=== PATIENT | female | born 1990 | race Caucasian/White ===

== ENCOUNTER 2019-04-19 15:04 | Emergency (ER) | payer BC ==
[2019-04-19 16:09] LABS: Absolute Lymphocytes (CBC) 1.6 K/uL (0.7-4.9); Absolute Monocytes 0.4 K/uL (0.1-1.3); Absolute Neutrophil 5.3 K/uL (1.8-8.0); Basophils % 0.3 % (0-1.3); Eosinophils % 1.1 % (0-4.4); Hematocrit 37.4 % (36.0-45.0); Lymphocytes % 21.8 % (15.3-44.8); MPV 10.3 fL (7.6-11.3); Monocytes % 4.8 % (3.3-12.3); RBC Red Blood Cell Count 4.14 M/uL (3.86-4.86)
[2019-04-19 16:16] LABS: BUN Blood Urea Nitrogen 9 mg/dL (7-18); Bicarbonate 28 mmol/L (21-32); Creatine Phosphokinase 413 U/L (26-192); Glucose Level 83 mg/dL (74-106); Potassium 3.6 mmol/L (3.5-5.1); Sodium Level 139 mmol/L (136-145); Troponin (Emerg Dept Use Only) < 0.02 ng/mL (0.0-0.045)
[2019-04-19] MEDS ORDERED: NA CHLORIDE 0.9% 1,000 ML ONE (16:41)
--- NOTE | 2019-04-19 16:42 | RAD REPORT ---
EXAM DESCRIPTION: RAD - Chest Pa And Lat (2 Views) - 04/19/2019 4:34 pm CLINICAL HISTORY: R/O PNEUMONIA Chest pain. COMPARISON: No comparisons FINDINGS: The lungs are clear. The heart is normal in size. No displaced fractures. IMPRESSION: No acute or concerning finding suspected.
--- NOTE | 2019-04-19 17:09 | EDPHYS ---
Physician Documentation [facility] Name: Skyla Conroy Age: 28 yrs Sex: Female : 1990 Arrival Date: 04/19/2019 Time: 15:08 Bed 2 Private MD: ED Physician Kvng Kinsey HPI: 04/19 15:50 This 28 yrs old Female presents to ER via Wheelchair with complaints of Chest kb Pain. 15:50 The patient or guardian reports chest pain that is located primarily in the anterior kb chest wall, right. The pain does not radiate. Associated signs and symptoms: The patient has no apparent associated signs or symptoms. The chest pain is described as sharp. Duration: The patient or guardian reports a single episode, that is still ongoing. Modifying factors: the symptoms are aggravated by deep breath, movement. Severity of pain: At its worst the pain was moderate in the emergency department the pain is unchanged. The patient has not experienced similar symptoms in the past. The patient has not recently seen a physician. Pt reports sharp right, lower chest pain that started yesterday. Pain is sharp with deep breath, sneezing and movement. Denies palpitations, shortness of breath, cough, fever or any other symptoms.. Historical: - Allergies: 15:34 Codeine; sv - PMHx: 15:54 None; sv - PSHx: 15:34 None; sv - Immunization history:: Adult Immunizations up to date. - Social history:: Smoking status: Patient/guardian denies using tobacco. - Ebola Screening: : No symptoms or risks identified at this time. ROS: 15:49 Constitutional: Negative for fever, chills, and weight loss, Neck: Negative for injury, kb pain, and swelling, Respiratory: Negative for shortness of breath, cough, wheezing, and pleuritic chest pain, Abdomen/GI: Negative for abdominal pain, nausea, vomiting, diarrhea, and constipation, Back: Negative for injury and pain, MS/Extremity: Negative for injury and deformity, Skin: Negative for injury, rash, and discoloration, Neuro: Negative for headache, weakness, numbness, tingling, and seizure. 15:49 Cardiovascular: Positive for chest pain, with movement, of the right breast, Negative for edema, orthopnea, palpitations, paroxysmal nocturnal dyspnea. Exam: 15:49 Constitutional: This is a well developed, well nourished patient who is awake, alert, kb and in no acute distress. Head/Face: Normocephalic, atraumatic. Neck: Trachea midline, no thyromegaly or masses palpated, and no cervical lymphadenopathy. Supple, full range of motion without nuchal rigidity, or vertebral point tenderness. No Meningismus. Cardiovascular: Regular rate and rhythm with a normal S1 and S2. No gallops, murmurs, or rubs. Normal PMI, no JVD. No pulse deficits. Respiratory: Lungs have equal breath sounds bilaterally, clear to auscultation and percussion. No rales, rhonchi or wheezes noted. No increased work of breathing, no retractions or nasal flaring. Abdomen/GI: Soft, non-tender, with normal bowel sounds. No distension or tympany. No guarding or rebound. No evidence of tenderness throughout. Skin: Warm, dry with normal turgor. Normal color with no rashes, no lesions, and no evidence of cellulitis. MS/ Extremity: Pulses equal, no cyanosis. Neurovascular intact. Full, normal range of motion. Neuro: Awake and alert, GCS 15, oriented to person, place, time, and situation. Cranial nerves II-XII grossly intact. Motor strength 5/5 in all extremities. Sensory grossly intact. Cerebellar exam normal. Normal gait. 15:49 Chest/axilla: Inspection: normal, Palpation: tenderness, that is mild, of the right breast, that partially reproduces the patient's complaints, Axilla: are normal. 15:53 ECG was reviewed by the Attending Physician. kb Vital Signs: 15:35 BP 122 / 79; Pulse 70; Resp 18; Temp 97.9(O); Pulse Ox 98% ; Weight 74.84 kg; Height 5 sv ft. 5 in. (165.10 cm); Pain 5/10; 16:35 BP 123 / 66; Pulse 65; Resp 16; Pulse Ox 100% ; sv 17:18 BP 126 / 73; Pulse 66; Resp 16; Pulse Ox 99% ; sv 15:35 Body Mass Index 27.46 (74.84 kg, 165.10 cm) sv MDM: 15:24 Patient medically screened. kb 15:49 Data reviewed: vital signs, nurses notes. Data interpreted: Pulse oximetry: on room air kb is 100 %. Interpretation: normal. 17:08 Counseling: I had a detailed discussion with the patient and/or guardian regarding: the kb historical points, exam findings, and any diagnostic results supporting the discharge/admit diagnosis, lab results, radiology results, the need for outpatient follow up, a family practitioner, to return to the emergency department if symptoms worsen or persist or if there are any questions or concerns that arise at home. 04/19 15:30 Order name: CBC with Diff; Complete Time: 16:20 kb 04/19 15:30 Order name: Basic Metabolic Panel; Complete Time: 16:20 kb 04/19 15:30 Order name: Troponin (emerg Dept Use Only); Complete Time: 16:20 kb 04/19 15:30 Order name: CPK; Complete Time: 16:20 kb 04/19 15:30 Order name: EKG; Complete Time: 15:43 kb 04/19 16:25 Order name: Chest Pa And Lat (2 Views); Complete Time: 16:43 EDMS 04/19 15:30 Order name: IV Start; Complete Time: 15:51 kb 04/19 15:30 Order name: EKG - Nurse/Tech; Complete Time: 15:51 kb EC:53 Rate is 78 beats/min. Rhythm is regular, Normal Sinus Rhythm. QRS [place] is Normal. MD kb interval is normal at 162 msec. QRS interval is normal at 80 msec. QT interval is normal at 392 msec. Clinical impression: Normal ECG. Interpreted by me. Reviewed by me. Administered Medications: 16:30 Drug: NS 0.9% 1000 ml Route: IV; Rate: 1000 ml; Site: right antecubital; sv 17:21 Follow up: Response: No adverse reaction; IV Status: Completed infusion; IV Intake: sv 1000ml Disposition: 04/19/19 17:08 Discharged to Home. Impression: Chest pain on breathing. - Condition is Stable. - Discharge Instructions: Costochondritis, [id number], Nonspecific Chest Pain, [id number]. - Medication Reconciliation Form, Thank You Letter, Antibiotic Education, Prescription Opioid Use form. - Follow up: Private Physician; When: 2 - 3 days; Reason: Recheck today's complaints, Continuance of care, Re-evaluation by your physician. Follow up: Emergency Department; When: As needed; Reason: Worsening of condition. Addendum: 04/23/2019 20:54 Co-signature as Attending Physician, Kvng Kinsey MD. g s Signatures: Dispatcher [employer] [facility] Yola De Los Santos, JOSAFAT-Maria Alejandra MAURICE-Felicita Sin, RN RN Kvng Forrest MD MD gs Corrections: (The following items were deleted from the chart) 04/19 15:55 15:38 Chest Pa And Lat (2 Views) ordered. [facility] EDPR 15:55 15:43 Chest Pa And Lat (2 Views)+RAD.RAD.BRZ ordered. [facility] EDPR 17:21 17:08 04/19/2019 17:08 Discharged to Home. Impression: Chest pain on breathing. sv Condition is Stable. Forms are Medication Reconciliation Form, Thank You Letter, Antibiotic Education, Prescription Opioid Use. Follow up: Private Physician; When: 2 - 3 days; Reason: Recheck today's complaints, Continuance of care, Re-evaluation by your physician. Follow up: Emergency Department; When: As needed; Reason: Worsening of condition. kb
--- NOTE | 2019-04-19 17:09 | ER ---
Nurse's Notes [facility] Name: Skyla Conroy Age: 28 yrs Sex: Female : 1990 Arrival Date: 04/19/2019 Time: 15:08 Bed 2 Private MD: Diagnosis: Chest pain on breathing Presentation: 04/19 15:25 Presenting complaint: Patient states: right sided chest pain, worse with movement or sv deep breathing. Transition of care: patient was not received from another setting of care. Risk Assessment: Do you want to hurt yourself or someone else? Patient reports no desire to harm self or others. Initial Sepsis Screen: Does the patient meet any 2 criteria? No. Patient's initial sepsis screen is negative. Does the patient have a suspected source of infection? No. Patient's initial sepsis screen is negative. Care prior to arrival: None. 15:25 Method Of Arrival: Wheelchair sv 15:25 Acuity: TORIBIO 3 sv 17:20 Onset of symptoms was April 18, 2018. sv Triage Assessment: 15:25 General: Appears in no apparent distress. uncomfortable, slender, well developed, sv Behavior is calm, cooperative, appropriate for age. Pain: Complains of pain in right breast Pain currently is 5 out of 10 on a pain scale. Quality of pain is described as sharp, Is intermittent, episodic, Aggravated by deep breathing and movement. Neuro: Level of Consciousness is awake, alert, obeys commands, Oriented to person, place, time, situation, Moves all extremities. Full function Gait is steady. Respiratory: Respiratory effort is even, unlabored, Respiratory pattern is regular, symmetrical. Derm: Skin is pink, warm \T\ dry. Historical: - Allergies: 15:34 Codeine; sv - PMHx: 15:54 None; sv - PSHx: 15:34 None; sv - Immunization history:: Adult Immunizations up to date. - Social history:: Smoking status: Patient/guardian denies using tobacco. - Ebola Screening: : No symptoms or risks identified at this time. Screenin:06 Abuse screen: Denies threats or abuse. Denies injuries from another. Nutritional hb screening: No deficits noted. Tuberculosis screening: No symptoms or risk factors identified. Fall Risk None identified. Assessment: 15:38 General: Appears in no apparent distress. Behavior is calm, cooperative. Pain: hb Complains of pain in chest Pain does not radiate. Pain began 2-3 days ago. Neuro: Level of Consciousness is awake, alert, obeys commands, Oriented to person, place, time, situation. Cardiovascular: Heart tones S1 S2 present Capillary refill < 3 seconds Patient's skin is warm and dry. Respiratory: Airway is patent Respiratory effort is even, unlabored, Respiratory pattern is regular, symmetrical, Breath sounds are clear bilaterally. GI: No signs and/or symptoms were reported involving the gastrointestinal system. : No signs and/or symptoms were reported regarding the genitourinary system. EENT: No signs and/or symptoms were reported regarding the EENT system. Derm: Skin is intact, is healthy with good turgor, Skin is pink, warm \T\ dry. Musculoskeletal: No signs and/or symptoms reported regarding the musculoskeletal system. 16:19 Reassessment: Patient appears in no apparent distress at this time. No changes from sv previously documented assessment. Patient and/or family updated on plan of care and expected duration. Pain level reassessed. Patient is alert, oriented x 3, equal unlabored respirations, skin warm/dry/pink. 16:34 Reassessment: Patient appears in no apparent distress at this time. No changes from sv previously documented assessment. Patient and/or family updated on plan of care and expected duration. Pain level reassessed. Patient is alert, oriented x 3, equal unlabored respirations, skin warm/dry/pink. 17:18 Reassessment: Patient appears in no apparent distress at this time. No changes from sv previously documented assessment. Patient and/or family updated on plan of care and expected duration. Pain level reassessed. Patient is alert, oriented x 3, equal unlabored respirations, skin warm/dry/pink. Vital Signs: 15:35 BP 122 / 79; Pulse 70; Resp 18; Temp 97.9(O); Pulse Ox 98% ; Weight 74.84 kg; Height 5 sv ft. 5 in. (165.10 cm); Pain 5/10; 16:35 BP 123 / 66; Pulse 65; Resp 16; Pulse Ox 100% ; sv 17:18 BP 126 / 73; Pulse 66; Resp 16; Pulse Ox 99% ; sv 15:35 Body Mass Index 27.46 (74.84 kg, 165.10 cm) sv ED Course: 15:08 Patient arrived in ED. tw3 15:24 Yola D eLos Santos FNP-C is [facility]. kb 15:24 Kvng Kinsey MD is Attending Physician. kb 15:25 Arm band placed on Patient placed in an exam room, on a stretcher. sv 15:30 EKG done, by ED staff, reviewed by Yola DE LA TORRE. sv 15:32 Felicita Smith RN is Primary Nurse. sv 15:33 Triage completed. sv 15:34 Patient has correct armband on for positive identification. Placed in gown. Bed in low hb position. Call light in reach. Side rails up X 1. clinical nurse occupational medicine on. Pulse ox on. NIBP on. 15:39 Patient maintains SpO2 saturation greater than 95% on room air. hb 15:45 Inserted saline lock: 20 gauge in right antecubital area, using aseptic technique. hb Blood collected. 16:19 Patient moved to radiology via wheelchair. sv 16:31 Chest Pa And Lat (2 Views) Sent. sv 16:34 Chest Pa And Lat (2 Views) In Process Unspecified. EDMS 16:34 Awaiting lab results, Awaiting radiology results. sv 17:18 No provider procedures requiring assistance completed. Patient did not have IV access sv during this emergency room visit. Administered Medications: 16:30 Drug: NS 0.9% 1000 ml Route: IV; Rate: 1000 ml; Site: right antecubital; sv 17:21 Follow up: Response: No adverse reaction; IV Status: Completed infusion; IV Intake: sv 1000ml Intake: 17:21 IV: 1000ml; Total: 1000ml. sv Outcome: 17:08 Discharge ordered by . kb 17:19 Discharged to home ambulatory. sv 17:19 Condition: stable 17:19 Discharge instructions given to patient, Instructed on discharge instructions, follow up and referral plans. Demonstrated understanding of instructions, follow-up care. 17:21 Patient left the ED. sv Signatures: Dispatcher [employer] EDMS Yola De Los Santos FNP-C FNP-Ckb Verde, Stephanie, CHEN RN sv Baylee Crump RN RN hb Wade, Celine tw3 Corrections: (The following items were deleted from the chart) 15:54 15:35 BP 122 / 79; Pulse 70bpm; Resp 18bpm; Pulse Ox 98%; sv sv
[2019-04-19 18:05] VITALS: TEMP 97.9
[2019-04-19 18:08] VITALS: BP 126/73; O2SAT 99
--- NOTE | 2019-04-20 12:53 | EKG ---
Test Date: 2019-04-19 Test Time: 15:27:54 Wood Casket Assembler: MICHAEL MEASUREMENT RESULTS: Intervals: Rate: 78 LA: 162 QRSD: 80 QT: 392 QTc: 446 [place]: P: 54 LA: 162 QRS: 63 T: 61 INTERPRETIVE STATEMENTS: Normal sinus rhythm Normal ECG No previous ECG available for comparison Electronically Signed On 04-20-19 12:50:54 CDT by Wilfredo Isidro
== END 2019-04-19 17:21 | disposition home or self-care (01) ==
LOC: ER 15:04
DX: R07.1 Chest pain on breathing (principal); Z88.5 Allergy status to narcotic agent
CPT/HCPCS: 36415; 71046; 80048; 82550; 84484; 85025; 93005; 96360; 99285; J7030

== ENCOUNTER 2020-01-30 | Emergency (ER) | payer BC ==
--- NOTE | 2020-01-30 09:10 | ER ---
Nurse's Notes [facility] Name: Skyla Conroy Age: 29 yrs Sex: Female : 1990 Arrival Date: 01/30/2020 Time: 08:31 Bed 17 Private MD: Diagnosis: Dental caries Presentation: 08:52 Chief complaint: Patient states: has a cracked tooth on right lower side of mouth, has iw been hurting for past 3 days. Coronavirus screen: The patient has NOT traveled to [place] in the past 14 days. Proceed with normal triage procedures. Ebola Screen: Patient negative for fever greater than or equal to 101.5 degrees Fahrenheit, and additional compatible Ebola Virus Disease symptoms Patient denies exposure to infectious person. Patient denies travel to an Ebola-affected area in the 21 days before illness onset. No symptoms or risks identified at this time. Initial Sepsis Screen: Does the patient meet any 2 criteria? No. Patient's initial sepsis screen is negative. Does the patient have a suspected source of infection? No. Patient's initial sepsis screen is negative. Risk Assessment: Do you want to hurt yourself or someone else? Patient reports no desire to harm self or others. 08:52 Method Of Arrival: Ambulatory iw 08:52 Acuity: TORIBIO 4 iw 09:24 Onset of symptoms was January 30, [address]. iw [address] [place] JUDGE: 09:24 LMP N/A - iw Historical: - Allergies: 08:54 Codeine; iw - Home Meds: 08:54 None [Active]; iw - PMHx: 08:54 None; iw - PSHx: 08:54 None; iw - Immunization history:: Adult Immunizations. - Social history:: Smoking status: Patient denies any tobacco usage or history of. Screenin:55 Abuse screen: Denies threats or abuse. Denies injuries from another. Nutritional iw screening: No deficits noted. Tuberculosis screening: No symptoms or risk factors identified. Fall Risk None identified. Assessment: 08:54 General: Appears in no apparent distress. Behavior is calm, cooperative. Pain: iw Complains of pain in right jaw. Neuro: Level of Consciousness is awake, alert, obeys commands, Oriented to person, place, time, situation. Respiratory: Respiratory effort is even, unlabored. EENT: Reports pain in right jaw. Vital Signs: 08:52 BP 121 / 65; Pulse 77; Resp 16; Temp 97.7; Pulse Ox 100% on R/A; Weight 77.11 kg; iw Height 5 ft. 5 in. (165.10 cm); Pain 10/10; 08:52 Body Mass Index 28.29 (77.11 kg, 165.10 cm) iw ED Course: 08:31 Patient arrived in ED. mr 08:53 Triage completed. iw 08:54 Arm band placed on. iw 08:59 Francisco Persaud, RN is Primary Nurse. em 09:00 Jason Rivera NP is PHCP. pm1 09:00 Abebe Daly MD is Attending Physician. pm1 09:23 No provider procedures requiring assistance completed. Patient did not have IV access iw during this emergency room visit. 09:24 Patient has correct armband on for positive identification. iw Administered Medications: No medications were administered Outcome: 09:09 Discharge ordered by MD. pm1 09:23 Discharged to home ambulatory. iw 09:23 Condition: good 09:23 Discharge instructions given to patient, Instructed on discharge instructions, follow up and referral plans. medication usage, Demonstrated understanding of instructions, follow-up care, medications, Prescriptions given X 2. 09:24 Patient left the ED. iw Signatures: Jonathon Cecilia mr Francisco Persaud RN RN Rosey Rodney RN RN iw Jason Rivera NP DRY DRUG WORKER pm1 Corrections: (The following items were deleted from the chart) 08:54 08:52 Pulse 77bpm; Resp 16bpm; Pulse Ox 100% RA; Temp 97.7F; 77.11 kg; Height 5 ft. 5 iw in.; BMI: 28.2; Pain 10/10; iw
--- NOTE | 2020-01-30 09:10 | EDPHYS ---
Physician Documentation [facility] Name: Skyla Conroy Age: 29 yrs Sex: Female : 1990 Arrival Date: 01/30/2020 Time: 08:31 Bed 17 Private MD: ED Physician Abebe Daly HPI: 09:09 This 29 yrs old Female presents to ER via Ambulatory with complaints of pm1 Toothache. 09:09 The patient presents with pain. The problem is located in the lower right third molar. pm1 09:09 Onset: The symptoms/episode began/occurred 3 day(s) ago. Duration: The symptoms are pm1 continuous. Modifying factors: The symptoms are alleviated by nothing. Associated signs and symptoms: Pertinent positives: pain, Pertinent negatives: dysphagia, fever, inability to eat, nausea, swelling, vomiting. Severity of symptoms: in the emergency department the symptoms are actually worse. The patient has not recently seen a physician. Patient with cracked right lower molar present for at least 1 year. On and off pain. Has been worse for the past 3 days. 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 - Social history:: Smoking status: Patient denies any tobacco usage or history of. ROS: 09:09 Constitutional: Negative for fever, chills, and weight loss. pm1 09:09 Neck: Negative for injury, pain, and swelling, Cardiovascular: Negative for chest pain, palpitations, and edema, Respiratory: Negative for shortness of breath, cough, wheezing, and pleuritic chest pain, Abdomen/GI: Negative for abdominal pain, nausea, vomiting, diarrhea, and constipation, Neuro: Negative for headache, weakness, numbness, tingling, and seizure. 09:09 ENT: Positive for dental pain, Negative for ear pain, sore throat, difficulty swallowing, difficulty handling secretions, hoarseness. 09:09 All other systems are negative. Exam: 09:09 Constitutional: This is a well developed, well nourished patient who is awake, alert, pm1 and in no acute distress. Head/Face: Normocephalic, atraumatic. 09:09 Neck: Trachea midline, no thyromegaly or masses palpated, and no cervical lymphadenopathy. Supple, full range of motion without nuchal rigidity, or vertebral point tenderness. No Meningismus. Chest/axilla: Normal chest wall appearance and motion. Nontender with no deformity. No lesions are appreciated. Cardiovascular: Regular rate and rhythm with a normal S1 and S2. No gallops, murmurs, or rubs. Normal PMI, no JVD. No pulse deficits. Respiratory: Lungs have equal breath sounds bilaterally, clear to auscultation and percussion. No rales, rhonchi or wheezes noted. No increased work of breathing, no retractions or nasal flaring. Skin: Warm, dry with normal turgor. Normal color with no rashes, no lesions, and no evidence of cellulitis. MS/ Extremity: Pulses equal, no cyanosis. Neurovascular intact. Full, normal range of motion. 09:09 ENT: Dental exam: dental caries, that is moderate, specifically in the lower right third molar (#32). 09:09 Neuro: Exam negative for acute changes, Orientation: is normal, Mentation: is normal, Motor: is normal, moves all fours, Gait: is steady, at a normal pace, without difficulty. Vital Signs: 08:52 BP 121 / 65; Pulse 77; Resp 16; Temp 97.7; Pulse Ox 100% on R/A; Weight 77.11 kg; iw Height 5 ft. 5 in. (165.10 cm); Pain 10/10; 08:52 Body Mass Index 28.29 (77.11 kg, 165.10 cm) iw MDM: 09:01 Patient medically screened. [facility] 09:09 Data reviewed: vital signs. Data interpreted: Pulse oximetry: on room air is 100 %. pm1 Interpretation: normal. Counseling: I had a detailed discussion with the patient and/or guardian regarding: the historical points, exam findings, and any diagnostic results supporting the discharge/admit diagnosis, the need for outpatient follow up, for definitive care, a dentist, to return to the emergency department if symptoms worsen or persist or if there are any questions or concerns that arise at home. 09:13 ED course: No patient data on [place]. pm1 Administered Medications: No medications were administered Disposition: 01/30/20 09:09 Discharged to Home. Impression: Dental caries. - Condition is Stable. - Discharge Instructions: Dental Pain. - Prescriptions for Amoxicillin 500 mg Oral Capsule - take 1 capsule by ORAL route every 8 hours for 10 days; 30 tablet. Tramadol 50 mg Oral Tablet - take 1 tablet by ORAL route every 8 hours As needed as needed; 15 tablet. - Work release form, Medication Reconciliation Form, Thank You Letter, Antibiotic Education, Prescription Opioid Use form. - Follow up: Emergency Department; When: As needed; Reason: Worsening of condition. Follow up: Private Physician; When: 2 - 3 days; Reason: Recheck today's complaints, Continuance of care, Re-evaluation by your physician. - Problem is new. - Symptoms have improved. Addendum: 01/31/2020 17:52 Co-signature as Attending Physician, Abebe Daly MD I agree with the assessment and c loja plan of care. Signatures: Abebe Daly MD MD cha Williams, Irene, RN RN Jason Jo NP [employer]ZARD[employer]ERIALS WASTE TECHNICIAN pm1 Corrections: (The following items were deleted from the chart) 09:24 09:09 01/30/2020 09:09 Discharged to Home. Impression: Dental caries. Condition is iw Stable. Forms are Medication Reconciliation Form, Thank You Letter, Antibiotic Education, Prescription Opioid Use. Follow up: Emergency Department; When: As needed; Reason: Worsening of condition. Follow up: Private Physician; When: 2 - 3 days; Reason: Recheck today's complaints, Continuance of care, Re-evaluation by your physician. Problem is new. Symptoms have improved. pm1
== END 2020-01-30 09:24 | disposition home or self-care (01) ==
CPT/HCPCS: 99282

== ENCOUNTER 2021-05-10 13:21 | Emergency (ER) | payer BC ==
--- NOTE | 2021-05-10 13:48 | ER ---
Nurse's Notes [facility] Name: Skyla Conroy Age: 30 yrs Sex: Female : 1990 Arrival Date: 05/10/2021 Time: 13:22 Bed 18 Private MD: Diagnosis: Cellulitis of right lower limb Presentation: 05/10 13:26 Chief complaint: Patient states: Swelling to medial aspect of right thigh started jl7 yesterday and has spread half way up and down past the knee, unsure if she was bit by something or not. Coronavirus screen: Client denies travel out of the [place] in the last 14 days. At this time, the client does not indicate any symptoms associated with coronavirus-19. Ebola Screen: No symptoms or risks identified at this time. Initial Sepsis Screen: Does the patient meet any 2 criteria? No. Patient's initial sepsis screen is negative. Does the patient have a suspected source of infection? No. Patient's initial sepsis screen is negative. Risk Assessment: Do you want to hurt yourself or someone else? Patient reports no desire to harm self or others. Onset of symptoms was May 09, 2021. Care prior to arrival: None. 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 - Social history:: Smoking status: Patient denies any tobacco usage or history of. Screenin:37 Abuse screen: Denies threats or abuse. Nutritional screening: No deficits noted. jd3 Tuberculosis screening: No symptoms or risk factors identified. Fall Risk Ambulatory Aid- None/Bed Rest/Nurse Assist (0 pts). Gait- Normal/Bed Rest/Wheelchair (0 pts) Mental Status- Oriented to own ability (0 pts). Total Pierre Fall Scale indicates No Risk (0-24 pts). Assessment: 13:35 General: Appears in no apparent distress. comfortable, Behavior is calm, cooperative, jd3 appropriate for age. Pain: Complains of pain in medial aspect of right thigh Quality of pain is described as tender. Neuro: Level of Consciousness is awake, alert, obeys commands, Oriented to person, place, time, situation. Cardiovascular: Denies chest pain, Capillary refill < 3 seconds Patient's skin is warm and dry. Respiratory: Airway is patent Respiratory effort is even, unlabored, Respiratory pattern is regular, symmetrical, Denies cough, shortness of breath. GI: No signs and/or symptoms were reported involving the gastrointestinal system. : No signs and/or symptoms were reported regarding the genitourinary system. EENT: No signs and/or symptoms were reported regarding the EENT system. Derm: Skin is intact, Skin is dry, Skin is normal, Skin temperature is warm Rash noted that is red, on medial aspect of right thigh. Musculoskeletal: Circulation, motion, and sensation intact. Range of motion: intact in all extremities. 13:55 Reassessment: Patient appears in no apparent distress at this time. Patient and/or jd3 family updated on plan of care and expected duration. Pain level reassessed. Patient is alert, oriented x 3, equal unlabored respirations, skin warm/dry/pink. reported understanding of discharge instructions. Vital Signs: 13:26 BP 143 / 63; Pulse 85; Resp 17; Temp 98.3; Pulse Ox 99% ; Weight 81.65 kg; Height 5 ft. jl7 5 in. (165.10 cm); Pain 3/10; 13:26 Body Mass Index 29.95 (81.65 kg, 165.10 cm) jl7 ED Course: 13:22 Patient arrived in ED. ds1 13:28 Triage completed. jl7 13:28 Arm band placed on right wrist. jl7 13:30 Saleem Bhakta, CHEN is Primary Nurse. jd3 13:34 Donn Parrish PA is PHCP. jm 13:34 Igor English MD is Attending Physician. [facility] 13:37 Patient has correct armband on for positive identification. Placed in gown. Bed in low jd3 position. Call light in reach. Side rails up X 1. Adult w/ patient. Pulse ox on. NIBP on. 13:37 No provider procedures requiring assistance completed. Patient did not have IV access jd3 during this emergency room visit. Administered Medications: No medications were administered Outcome: 13:47 Discharge ordered by . tammy 13:55 Discharged to home ambulatory. alexis 13:55 Condition: stable 13:55 Discharge instructions given to patient, Instructed on discharge instructions, follow up and referral plans. medication usage, Demonstrated understanding of instructions, follow-up care, medications, Prescriptions given X 1, 2. 13:55 Patient left the ED. eld3 Signatures: Donn Parrish PA PA jmm Sanford, Demi ds1 Sofie Ledezma RN RN jl7 Saleem Bhakta RN RN jd3
--- NOTE | 2021-05-10 13:48 | EDPHYS ---
Physician Documentation [facility] Name: Skyla Conroy Age: 30 yrs Sex: Female : 1990 Arrival Date: 05/10/2021 Time: 13:22 Bed 18 Private MD: ED Physician Igor English HPI: 05/10 13:44 This 30 yrs old Female presents to ER via Ambulatory with complaints of jmm Insect Bite. 13:44 the patient presents with a swollen area of the right leg. Onset: The symptoms/episode jmm began/occurred gradually, 1 day(s) ago. Possible cause(s): unknown. Associated signs and symptoms: Pertinent positives: erythema, swelling, Pertinent negatives: fever. Modifying factors: the symptoms are alleviated by nothing, the symptoms are aggravated by nothing. This is a 30 year old female with no chronic medical conditions that presents to the ED with complaints of right thigh pain and redness. First noticed 2 evenings ago. Denies fever. Pain increased today while ambulating. . 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 - Social history:: Smoking status: Patient denies any tobacco usage or history of. ROS: 13:44 Constitutional: Negative for fever, chills, and weight loss, Cardiovascular: Negative jmm for chest pain, palpitations, and edema, Respiratory: Negative for shortness of breath, cough, wheezing, and pleuritic chest pain. 13:44 Skin: Positive for erythema. 13:44 All other systems are negative. Exam: 13:44 Constitutional: This is a well developed, well nourished patient who is awake, alert, jmm and in no acute distress. Head/Face: atraumatic. Eyes: EOMI, no conjunctival erythema appreciated ENT: Moist Mucus Membranes Neck: Trachea midline, Supple Chest/axilla: Normal chest wall appearance and motion. Cardiovascular: Regular rate and rhythm. No edema appreciated Respiratory: Normal respirations, no respiratory distress appreciated Abdomen/GI: Non distended, soft Back: Normal ROM 13:44 Skin: erythema noted to the right thigh, induration noted, non fluctuant. . 13:44 Neuro: Orientation: is normal, Mentation: is normal, Memory: is normal. 13:44 Psych: Behavior/mood is pleasant, cooperative. Vital Signs: 13:26 BP 143 / 63; Pulse 85; Resp 17; Temp 98.3; Pulse Ox 99% ; Weight 81.65 kg; Height 5 ft. jl7 5 in. (165.10 cm); Pain 3/10; 13:26 Body Mass Index 29.95 (81.65 kg, 165.10 cm) jl7 MDM: 13:43 [facility] 13:46 Data reviewed: vital signs, nurses notes. Counseling: I had a detailed discussion with tammy the patient and/or guardian regarding: the historical points, exam findings, and any diagnostic results supporting the discharge/admit diagnosis, the need for outpatient follow up, to return to the emergency department if symptoms worsen or persist or if there are any questions or concerns that arise at home. ED course: Patient is alert and non toxic in appearance in the ED. No do not suspect sepsis, abscess. Patient is advised to follow up with pcp and otherwise given strict return precautions. Patient understood and agrees with the plan of care. . Administered Medications: No medications were administered Disposition: 14:06 Co-signature as Attending Physician, Igor English MD. rn Disposition: 05/10/21 13:47 Discharged to Home. Impression: Cellulitis of right lower limb. - Condition is Stable. - Discharge Instructions: Cellulitis, Adult. - Prescriptions for Doxycycline Hyclate 100 mg Oral Tablet - take 1 tablet by ORAL route every 12 hours; 20 tablet. Bactrim DS 800- 160 mg Oral Tablet - take 1 tablet by ORAL route every 12 hours for 10 days; 20 tablet. - Medication Reconciliation Form, Thank You Letter, Antibiotic Education, Prescription Opioid Use form. - Follow up: Private Physician; When: 2 - 3 days; Reason: Recheck today's complaints, Continuance of care, Re-evaluation by your physician. Signatures: Donn Parrish PA PA jmm Nieto, Roman, MD MD rn Leal, Jahala, RN RN jl7 Saleem Bhakta RN RN jd3 Corrections: (The following items were deleted from the chart) 13:55 13:47 05/10/2021 13:47 Discharged to Home. Impression: Cellulitis of right lower limb. jd3 Condition is Stable. Forms are Medication Reconciliation Form, Thank You Letter, Antibiotic Education, Prescription Opioid Use. Follow up: Private Physician; When: 2 - 3 days; Reason: Recheck today's complaints, Continuance of care, Re-evaluation by your physician. tammy
[2021-05-10 14:36] VITALS: BP 143/63; TEMP 98.3; O2SAT 99
== END 2021-05-10 13:55 | disposition home or self-care (01) ==
LOC: ER 13:21
DX: L03.115 Cellulitis of right lower limb (principal); Z88.5 Allergy status to narcotic agent
CPT/HCPCS: 99283

== ENCOUNTER 2023-01-30 09:23 | Emergency (ER) | payer BC ==
--- OUTSIDE RECORDS SUMMARY | 2023-01-30 09:27 | XMS REPORT | Continuity of Care Document ---
:1990 Author Organization [facility] t Address [address] [place] [address] Care Team Providers Name Role Phone Unavailable Unavailable Unavailable Problems This patient has no known problems. Allergies, Adverse Reactions, Alerts This patient has no known allergies or adverse reactions. Medications This patient has no known medications. Procedures This patient has no known procedures. Encounters Start End Encounter Admission Attending Care Care Encounter Source Date/Time Date/Time Type Type Clinicians Facility Department ID 2022-11-15 2022-11-15 Outpatient [facility] [id number] [id number] [place] 13:51:54 13:51:54 [address] [place] Results This patient has no known results.
[2023-01-30 10:49] LABS: SARS-COV-2 RT PCR POSITIVE (NEGATIVE)
--- NOTE | 2023-01-30 10:51 | ER ---
Nurse's Notes [facility] Name: Skyla Conroy Age: 32 yrs Sex: Female : 1990 Arrival Date: 01/30/2023 Time: 09:26 Bed IW2 Private MD: Diagnosis: Coronavirus infection, unspecified Presentation: 01/30 09:32 Chief complaint: Patient states: FLU symptoms that began Saturday. Cough, body aches, ss headache. Coronavirus screen: Client presents with at least one sign or symptom that may indicate coronavirus-19. Ebola Screen: Patient denies exposure to infectious person. Patient denies travel to an Ebola-affected area in the 21 days before illness onset. Initial Sepsis Screen: Does the patient meet any 2 criteria? No. Patient's initial sepsis screen is negative. Does the patient have a suspected source of infection? No. Patient's initial sepsis screen is negative. Risk Assessment: Do you want to hurt yourself or someone else? Patient reports no desire to harm self or others. Onset of symptoms was January 27, 2023. 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 - Social history:: Smoking status: Patient denies any tobacco usage or history of. Screenin:32 [facility] ED Fall Risk Assessment (Adult) History of falling in the last 3 months, ss including since admission No falls in past 3 months (0 pts). Abuse screen: Denies threats or abuse. Denies injuries from another. Nutritional screening: No deficits noted. Tuberculosis screening: Never had TB. Vital Signs: 09:33 Pulse 84; Resp 14; Temp 98.4(TE); Pulse Ox 100% on R/A; Weight 86.18 kg; Height 5 ft. 5 ss in. (165.10 cm); Pain 4/10; 09:33 BP 133 / 87; ss 09:33 Body Mass Index 31.62 (86.18 kg, 165.10 cm) ED Course: 09:26 Patient arrived in ED. mr 09:26 [facility] Chowdh[facility] 09:26 Abebe Daly MD is Attending Physician. [facility] 09:32 Patient has correct armband on for positive identification. 09:33 Triage completed. 09:33 Arm band placed on right wrist. 09:39 Strep Sent. ss 09:39 COVID-19/FLU A+B Sent. 10:39 Roseline Felix, RN is Primary Nurse. 11:12 No provider procedures requiring assistance completed. Patient did not have IV access during this emergency room visit. Administered Medications: No medications were administered Outcome: 10:50 Discharge ordered by . [facility] 11:12 Discharged to home ambulatory. 11:12 Condition: good 11:12 Discharge instructions given to patient, friend, Instructed on discharge instructions, follow up and referral plans. medication usage, Demonstrated understanding of instructions, follow-up care, medications, Prescriptions given X 3. 11:13 Patient left the ED. Signatures: Jonathon Cecilia mr Roseline Felix, RN RN Fabiana Chowdhury FNP [place] [id number]
--- NOTE | 2023-01-30 10:51 | EDPHYS ---
Physician Documentation [facility] Name: Skyla Conroy Age: 32 yrs Sex: Female : 1990 Arrival Date: 01/30/2023 Time: 09:26 Bed IW2 Private MD: ED Physician Abebe Daly HPI: 01/30 09:30 This 32 yrs old Female presents to ER via Ambulatory with complaints of Flu Symptoms. jh7 09:30 Onset: The symptoms/episode began/occurred 2 day(s) ago. Associated signs and symptoms: jh Pertinent positives: cough, headache, nasal discharge, sore throat, body aches, Pertinent negatives: abdominal pain, chest pain, vomiting. 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 - Social history:: Smoking status: Patient denies any tobacco usage or history of. ROS: 09:30 Eyes: Negative for injury, pain, redness, and discharge, Cardiovascular: Negative for jh7 chest pain, palpitations, and edema, Abdomen/GI: Negative for abdominal pain, nausea, vomiting, diarrhea, and constipation, Back: Negative for injury and pain, MS/Extremity: Negative for injury and deformity, Skin: Negative for injury, rash, and discoloration. 09:30 Constitutional: Positive for body aches, fever. 09:30 ENT: Positive for nasal discharge, sore throat. 09:30 Respiratory: Positive for cough, Negative for wheezing. 09:30 Neuro: Positive for headache. 09:30 All other systems are negative. Exam: 09:30 Head/Face: Normocephalic, atraumatic. Eyes: Pupils equal round and reactive to light, jh7 extra-ocular motions intact. Lids and lashes normal. Conjunctiva and sclera are non-icteric and not injected. Cornea within normal limits. Periorbital areas with no swelling, redness, or edema. Cardiovascular: Regular rate and rhythm with a normal S1 and S2. No gallops, murmurs, or rubs. Normal PMI, no JVD. No pulse deficits. Respiratory: Lungs have equal breath sounds bilaterally, clear to auscultation and percussion. No rales, rhonchi or wheezes noted. No increased work of breathing, no retractions or nasal flaring. Abdomen/GI: Soft, non-tender, with normal bowel sounds. No distension or tympany. No guarding or rebound. No evidence of tenderness throughout. Skin: Warm, dry with normal turgor. Normal color with no rashes, no lesions, and no evidence of cellulitis. MS/ Extremity: Pulses equal, no cyanosis. Neurovascular intact. Full, normal range of motion. Neuro: Awake and alert, GCS 15, oriented to person, place, time, and situation. Motor strength 5/5 in all extremities. Sensory grossly intact. Normal gait. 09:30 Constitutional: The patient appears alert, awake, uncomfortable. 09:30 ENT: TM's: are normal, Posterior pharynx: post nasal drainage. Vital Signs: 09:33 Pulse 84; Resp 14; Temp 98.4(TE); Pulse Ox 100% on R/A; Weight 86.18 kg; Height 5 ft. 5 ss in. (165.10 cm); Pain 4/10; 09:33 BP 133 / 87; ss 09:33 Body Mass Index 31.62 (86.18 kg, 165.10 cm) ss MDM: 09:26 Patient medically screened. [facility] 10:53 Differential diagnosis: viral Infection, bacterial infection, URI, pneumonia COVID, jh7 influenza. Data reviewed: vital signs, nurses notes. I considered the following discharge prescriptions or medication management in the emergency department I discussed and recommended Over The Counter medications, Prescribed Tessalon, Bromfed, and ProAir inhaler. Test considered but Not performed: X-ray: Lung sounds clear bilaterally, vital signs stable. Counseling: I had a detailed discussion with the patient and/or guardian regarding: the historical points, exam findings, and any diagnostic results supporting the discharge/admit diagnosis, to return to the emergency department if symptoms worsen or persist or if there are any questions or concerns that arise at home. 01/30 09:27 Order name: COVID-19/FLU A+B; Complete Time: 10:51 [facility] 01/30 09:34 Order name: Strep; Complete Time: 10:16 [facility] 01/30 10:08 Order name: Throat Culture EDMS Administered Medications: No medications were administered Disposition Summary: 01/30/23 10:50 Discharge Ordered Location: Home [facility] Problem: new [facility] Symptoms: are unchanged [facility] Condition: Stable [facility] Diagnosis - Coronavirus infection, unspecified [facility] Followup: [facility] - With: Private Physician - When: 2 - 3 days - Reason: Recheck today's complaints Discharge Instructions: - Discharge Summary Sheet [facility] - COVID-19 [facility] - COVID-19 Frequently Asked Questions [facility] - 10 Things You Can Do to Manage Your COVID-19 Symptoms at Home - [place] [id number] Forms: - Medication Reconciliation Form [facility] - Thank You Letter [facility] Prescriptions: - Bromfed DM 2-30-10 mg/5 mL Oral syrup - take 10 milliliter by ORAL route every 4 hours As needed; 240 milliliter; [facility] Refills: 0, Product Selection Permitted - ProAir HFA 90 mcg/actuation Inhalation HFA aerosol inhaler - inhale 2 puff by INHALATION route every 4-6 hours As needed; 1 Inhaler; [facility] Refills: 0, Product Selection Permitted - Tessalon Perles 100 mg Oral Capsule - take 1 capsule by ORAL route every 8 hours As needed; 15 capsule; Refills: 0, [facility] Product Selection Permitted Signatures: Dispatcher [employer] Roseline Leon, CHEN RN ss Fabiana Chowdhury, GLASS BREAKER GLASS BREAKER [facility]
[2023-01-30 11:17] VITALS: BP 133/87; TEMP 98.4; O2SAT 100
== END 2023-01-30 11:13 | disposition home or self-care (01) ==
LOC: ER 09:23
DX: U07.1 COVID-19 (principal); Z88.5 Allergy status to narcotic agent
CPT/HCPCS: 87070; 87081; 0240U

== ENCOUNTER 2024-11-19 06:04 | Day surgery (SDC) | payer BC ==
[2024-11-19] MEDS: Ringers Lactate 1,000 ML IV ONE (06:38)
[2024-11-19] MEDS: MOXIFLOXACIN HCL 0.5% 3ML OPTH ONE (06:44)
[2024-11-19] MEDS: PHENYLEPHRINE 10% OPTH 5ML ONE (06:44)
[2024-11-19] MEDS: CYCLOPENTOLATE 2% OPTH 2 ML ONE (06:44)
[2024-11-19] MEDS ORDERED: dexAMETHasone 10 MG/ML VIAL ONE (07:01)
[2024-11-19] MEDS ORDERED: propofoL 200 MG/20 ML VIAL IV ONE (07:01)
[2024-11-19] MEDS ORDERED: FENTANYL CITR 100 MCG/2 ML ONE ×3 (07:01→08:37)
[2024-11-19] MEDS ORDERED: MIDAZOLAM HCL 2 MG/2 ML INJ ONE (07:01)
[2024-11-19] MEDS ORDERED: ONDANSETRON 4 MG/2 ML VIAL ONE (07:01)
[2024-11-19] MEDS ORDERED: LIDOCAINE 2% MPF 5 ML VIAL ONE (07:01)
[2024-11-19] MEDS ORDERED: BSS OPTHALMIC SOL 15 ML OPTH ONE (07:18)
[2024-11-19] MEDS ORDERED: POVIDONE-IODINE 5% EYE DROPS ONE (07:19)
[2024-11-19] MEDS ORDERED: GLYCOPYRROLATE 0.2 MG/ML SYR ONE (07:52)
[2024-11-19] MEDS ORDERED: KETOROLAC 30 MG/ML INJ ONE (08:03)
[2024-11-19] MEDS: TOBRADEX 0.3-0.1% OPTH OINTMENT ONE (08:11)
[2024-11-19 08:49] LABS: Urine Specific Gravity/Preg >1.030 (1.005-1.030)
[2024-11-19] MEDS: FENTANYL CITR 100 MCG/2 ML ONE (09:27)
[2024-11-19] MEDS: HYDROCODONE/APAP 7.5/325 MG TAB ONE (10:00)
[2024-11-19 11:03] VITALS: BP 127/66; O2SAT 100
[2024-11-19 11:04] VITALS: TEMP 97
--- NOTE | 2024-11-19 11:22 | OP ---
Date of Procedure: 11/19/2024 Surgeon: Reed Carter MD [employer] Project Manager: None. Preoperative Diagnosis: Exotropia, left eye. Postoperative Diagnosis: Exotropia, left eye. Procedure Performed: Left medial rectus recession, 4 mm. Left lateral rectus resection, 3.5 mm. Description Of Procedure: After being properly identified in the preoperative holding area, patient was taken back to the operating room where a time-out was performed. The patient was then prepped an d draped in the normal sterile fashion. Examination of extraocular motility was carried out, which s howed good passive motion without any restriction. Therefore, the preoperative plan of operating on the patient's left eye was carried out. Of important note, the patient had a large angle esotropia m easured in the office, but was unable to tolerate full correction with prism secondary to resultant d iplopia and therefore our preoperative goal was to correct for approximately 25 prism diopters, which the patient was able to tolerate with prism over her glasses as measured in my office. I carried ou t the recession of the medial rectus first. The globe was grasped with a pair of 0.3 forceps and the conjunctiva incised and dissected and the medial rectus muscle isolated with a muscle hook and then cleaned. Thereafter, a 6-0 Vicryl on an S14 needle cut in half. Previously double-armed was used to spread the muscle belly near the insertion and tied into position using both the first half on the s uperior aspect and then the second half of the suture on the inferior aspect. These sutures were the n used to hold the muscle taut and the muscle disinserted using a Fernie scissors. Using a caliper set to 4 mm, the medial rectus was recessed 4 mm and tied into position. The sutures were then trim med and our attention turned to the lateral rectus. The conjunctiva was again incised and then disse cted free until the lateral rectus could be isolated using a muscle hook. A technique was used in order to release any possible entrapment of the oblique. A Soo clamp was then attached t o the muscle near its insertion and secured into position and the muscle disinserted using a Fernie scissors. 2 additional 6-0 Vicryl on S14 needles. At this time, left double-armed were used to cre ate anchor points to the original muscle insertion point and then again a caliper was used to measure 3.5 mm at this time for the resection portion. Each of the suture needles was threaded through the muscle belly 3.5 mm from the cut aspect and then the muscle resecured and tied into position. Once t hese knots had been tied, the sutures were trimmed and the excess muscle material incised of the Marybeth ns clamp. Inspection of both muscles revealed good parallel insertions in their appropriate areas an d the conjunctiva was thereafter closed using two 9-0 Vicryl interrupted sutures. The drapes were th en removed and the patient patched over TobraDex ointment. She was taken to the postoperative [facility] area in stable condition having tolerated the procedure well being under general anesthesia the ent dereck time. There were no complications. Estimated blood loss was less than 5 mL. There were no spec imens sent. No drains were placed. Just for completeness, it should be noted that the patient's medial rectus did display overall a poor quality of tissue with some initial cheesewiring through the initial suture, therefore additional kn ots were placed in order to secure it, but I would not consider this complication, just a notation of the patient's anatomy should any further surgery be necessary. CHAUNCEY/JELANIL Voice ID: [id number] Report ID: [id number]
== END 2024-11-19 10:35 | disposition home or self-care (01) ==
LOC: OR 06:04
PROVIDERS: ATTEND Ophthalmology
PROC: 08SM0ZZ Reposition Left Extraocular Muscle, Open Approach (ICD-10-PCS; principal; 2024-11-19 07:30)
DX: H50.10 Unspecified exotropia (principal); H50.012 Monocular esotropia, left eye
CPT/HCPCS: 81025; 67312; J2704; J2003; J2250; J3010 ×4; J1100; J2405; J7120